=== PATIENT | male | born 1935 | race Caucasian/White ===

== ENCOUNTER 2018-05-12 13:17 | Inpatient (IN) | payer MEDICARE, BC ==
[~2018-05-12] VITALS: Ht 177.8 cm; Wt 64.0 kg
--- NOTE | 2018-05-12 14:00 | NUR ---
SENT BY DR. BRAVO FOR DEPRESSION, PSYCH ADMISSION. DENIES SI/HI. VSS. NAD NOTED @ THIS TIME. FAMILY @ BS.
[2018-05-12 14:01] LABS: BASOPHILS % (AUTO) 0.2 % (0.0-2.0); EOSINOPHILS % (AUTO) 2.2 % (0.0-6.0); HEMATOCRIT 38 % (39-51); HEMOGLOBIN 12.2 g/dL (13.5-17.5); LYMPHOCYTES % (AUTO) 14.2 % (20.0-44.0); MEAN CORPUSCULAR HEMOGLOBIN 32 PG (26.0-33.0); MEAN CORPUSCULAR HGB CONC 32 g/dl (31.0-36.0); MEAN CORPUSCULAR VOLUME 98 fL (80-96); MONOCYTES # (AUTO) 0.5 /CMM (0.1-1.30); MONOCYTES % (AUTO) 7.6 % (2.0-12.0); NEUTROPHILS # (AUTO) 5.1 /CMM (1.8-8.9); NEUTROPHILS % (AUTO) 75.8 % (43.0-81.0); PLATELET COUNT (AUTO) 224 /CMM (150-450); RDW COEFFICIENT OF VARIATION 14.1 (11.5-15.0); RED BLOOD CELL COUNT(AUTO) 3.86 MIL/uL (4.5-6.0); WHITE BLOOD COUNT (AUTO) 6.8 K/uL (4.3-11.0)
--- NOTE | 2018-05-12 14:23 | NUR ---
CALLED TARIK PINKJeremiah AND WAS TOLD SHE WOULD BE HERE WITHIN THE HOUR.
--- NOTE | 2018-05-12 14:24 | NUR ---
CALLED NURSING ANIMAL SHELTER SUPERVISOR AND REQUESTED A GPS BED FOR THIS PT.
[2018-05-12 14:25] LABS: CALCIUM, SERUM 9.2 mg/dL (8.5-10.1); CARBON DIOXIDE 32 mmol/L (21-32); CHLORIDE 103 mmol/L (98-107); GLUCOSE 94 mg/dL (74-106); POTASSIUM 4.6 mmol/L (3.5-5.1); SODIUM SERUM 140 mmol/L (136-145); UREA NITROGEN, BLOOD 38 mg/dL (7-18)
[2018-05-12 14:30] LABS: ACETAMINOPHEN 0 ug/ml (10-30); ALANINE AMINOTRANSFERASE 49 U/L (12-78); ALBUMIN 4.1 g/dL (3.4-5.0); ALCOHOL, BLOOD < 3 mg/dL (0-0); ALKALINE PHOSPHATASE 79 U/L (46-116); ASPARTATE AMINOTRANSFERASE 31 U/L (15-37); BILIRUBIN,DIRECT 0.1 mg/dL (0.0-0.2); BILIRUBIN,TOTAL 0.3 mg/dL (0.2-1.0); SALICYLATE 1.6 mg/dL (2.8-20.0); TOTAL PROTEIN, SERUM 7.6 g/dL (6.4-8.2)
[2018-05-12] MEDS ORDERED: LORAZEPAM 0.5 MG TABLET PO ONE (14:30)
[2018-05-12] MEDS ORDERED: LORAZEPAM 1 MG TABLET ONE (14:34)
[2018-05-12] MEDS ORDERED: ASPI-1169 PO (14:53)
[2018-05-12] MEDS ORDERED: ATOR20TA PO (14:53)
[2018-05-12] MEDS ORDERED: QUET100T PO (14:53)
[2018-05-12] MEDS ORDERED: MULT-1168 PO (14:53)
[2018-05-12] MEDS ORDERED: VENL150C2 PO (14:53)
[2018-05-12] MEDS ORDERED: FOLI0.4T2 PO (14:53)
[2018-05-12] MEDS ORDERED: LEVO112T2 PO (14:53)
[2018-05-12] MEDS ORDERED: CHOL50004 PO (14:53)
[2018-05-12] MEDS ORDERED: LORA0.5T PO (14:53)
--- NOTE | 2018-05-12 14:53 | NUR ---
Sosa Bass (Javascript Ui Developer) contact info: .
--- NOTE | 2018-05-12 15:00 | NUR ---
REPORT GIVEN SALINA MERINO FOR JUNE
--- NOTE | 2018-05-12 15:10 | NUR ---
PT IS ASSIGNED TO GPS #: [id number], DX: PSYCHOSIS NOS, AND ADMITTING PSYCHIATRIST IS DR RAMIREZ
--- NOTE | 2018-05-12 17:00 | NUR ---
ADMISSION NOTES PATIENT ADMITTED FROM ER A/O X3 MALE BY DX OF MAJOR DEPRESSION. PATIENT HAS NO ACUTE RESPIRATORY DISTRESS. ON FACE TO FACE ASSESSMENT PATIENT DEPRESS, GRINDING TEETH, REDIRECTABLE. PATIENT SKIN ASSESSMENT DONE, INTACT. PATIENT AMBULATORY, USING WALKER. BELONGING AND CONTRABAND CHECKED. V/S TAKEN BP 134/87, P-70, R-18, O2-97 ROOM AIR, T-98. NEEDS ATTENDED AND ANTICIPATED. DR BRAVO, AND DR GARCIA AWARE OF NEW PATIENT AND MEDICATION. CONTINUED MONITORING.
[2018-05-12 17:10] VITALS: BP 134/87
[2018-05-12] MEDS ORDERED: ACETAMINOPHEN 325 MG TABLET PO PRN (17:30)
[2018-05-12] MEDS ORDERED: MAGNESIUM HYDROXIDE 30 ML UDC PO PRN (17:30)
[2018-05-12] MEDS ORDERED: LORAZEPAM 0.5 MG TABLET PO PRN (17:30)
[2018-05-12] MEDS ORDERED: MAG HYDROX/AL HYDROX/SIMETH 30 ML UDC PO PRN (17:30)
[2018-05-12] MEDS: CHOLECALCIFEROL 1,000 UNIT TABLET (VIT D3) PO SCH (18:40)
--- NOTE | 2018-05-12 18:48 | NUR ---
RN NOTES ADMINISTERED ATIVAN 0.5 MG PO PRN FOR ANXIETY PER PATIENT REQUEST, V/S TAKEN BP 134/87, P-70, CONTINUED MONITORING.
[2018-05-12 20:00] VITALS: BP 132/89
--- NOTE | 2018-05-12 20:00 | NUR ---
RN NOTES RECEIVED PATIENT AWAKE IN DINING ROOM. AO X 3, ABLE TO MAKE NEEDS KNOWN. NO ACUTE DISTRESS NOTED. DENIES ANY PAIN AT THIS TIME. DENIES SI/HI. SAFETY REMINDERS GIVEN. PATIENT PROVIDED WITH LOW BED WITH BILATERAL UPPER SIDE RAILS UP. CALL MASON WITHIN EASY REACH. WILL CONTINUE TO MONITOR.
[2018-05-12 20:07] VITALS: BP 132/89
--- NOTE | 2018-05-13 02:02 | NUR ---
RN NOTES REPORT GIVEN TO LUIS RN FOR CONTINUITY OF CARE. PATIENT WILL BE TRANSFERRED TO ROOM 316-2.
--- NOTE | 2018-05-13 02:14 | NUR ---
TRANSFER ON HOLD FOR NOW PER APPEALS SPECIALIST.
--- NOTE | 2018-05-13 05:09 | NUR ---
RN NOTES PATIENT TRANSFERRED TO ROOM 316-2 UNDER THE CARE OF ULIS RN. ALL BELONGINGS BROUGHT WITH PATIENT.
--- NOTE | 2018-05-13 05:10 | NUR ---
GPS OV RN NOTES RECEIVED FROM MAIN GPS,ROOM 217,VIA WHEELCHAIR THIS 83 Y.O. MALE,ALERT,ORIENTED X3,ON VOLUNTARY STATUS,MAJOR DEPRESSION DIAGNOSIS.NO SKIN ISSUES.AMBULATORY,MED COMPLIANT PE REPORT.NO SALINE LOCK PER PSYCHE PROTOCOL.WILL CONTINUE TO MONITOR BEHAVIOR.
--- NOTE | 2018-05-13 07:28 | NUR ---
RN OPENING NOTES RECEIVED PATIENT IN BED RESTING, A/OX3. NO ACUTE DISTRESS, NO SOB. DENIED PAIN OR DISCOMFORT AT THIS TIME. SITTER AT BEDSIDE FOR SAFETY. NO IV. KEPT PATIENT SAFE AND COMFORTABLE. BED IN LOW/LOCKED POSITION, SIDERAILS UPX2, CALL LIGHT IN REACH. WILL CONTINUE TO MONITOR ACCORDINGLY.
[2018-05-13 08:00] VITALS: BP 122/84
[2018-05-13] MEDS: FOLIC ACID 1 MG TABLET PO SCH (08:58)
[2018-05-13] MEDS: MULTIVIT, IRON, MIN NO. 8, FA 1 TAB PO SCH (08:58)
[2018-05-13] MEDS: ATORVASTATIN 10 MG TABLET PO SCH (08:58)
[2018-05-13] MEDS: ASPIRIN 81 MG TAB.CHEW PO SCH (08:59)
[2018-05-13] MEDS: LEVOTHYROXINE SODIUM 112 MCG TABLET PO SCH (08:59)
[2018-05-13] MEDS ORDERED: MULTIPLE VIT (LYCOPENE/FA/MV,CA,IRON,MIN/LUT)1 TAB PO SCH (09:00)
[2018-05-13] MEDS: CHOLECALCIFEROL 1,000 UNIT TABLET (VIT D3) PO SCH (09:02)
[2018-05-13] MEDS: VENLAFAXINE XR 75 MG CAP.SR.24H PO SCH (15:31)
[2018-05-13 16:00] VITALS: BP 127/80
--- NOTE | 2018-05-13 19:15 | NUR ---
MS/GPS RN OPENING NOTE Patient was seen sitting up in bed AAOx3, breathing on RA with no SOB and no signs of acute distress. Patient appeared well-groomed, calm, and pleasant. Patient denies suicidal ideation. Bed is low/locked position, two side rails up, and call fierro within reach. Patient has no immediate needs/concerns at this time. Will continue to monitor.
--- NOTE | 2018-05-13 19:25 | NUR ---
RN CLOSING NOTES PATIENT IN STABLE CONDITION. ALL NEEDS ATTENDED AND PROVIDED. ALL DUE MEDS GIVEN. KEPT PATIENT COMFORTABLE. SITTER AT BEDSIDE FOR SAFETY. NO SUICIDAL IDEATION NOTED. BED IN LOW/LOCKED POSITION, SIDERAILS UPX2, CALL LIGHT IN REACH. ENDORSED TO NIGHT RN FOR JUNE.
[2018-05-13 20:00] VITALS: BP 134/82
--- NOTE | 2018-05-14 07:15 | NUR ---
GPS RN NOTE - Skin tear Skin tear noted on patient's right elbow during change of shift. This is a new finding. Patient states that he believes his elbow was rubbing against the bed, which is what caused the skin tear. Currently covered with a bandage. Scant bleeding noted. Will continue to monitor.
--- NOTE | 2018-05-14 07:18 | NUR ---
GPS RN CLOSING NOTE Patient is AAOx3, ambulating in room and to the bathroom with steady gait. Patient has been calm and cooperative and denies suicidal thoughts. Patient slept well overnight with no complications. Patient care endorsed to day shift nurse.
--- NOTE | 2018-05-14 07:29 | NUR ---
RN OPENING NOTES RECEIVED PATIENT IN THE TOILET URINATING. A/O X3. VERBALLY RESPONSIVE, DENIES ANY PAIN OR DISCOMFORTS AT THIS TIME. DENIES SI/HI. PT WITH 1:1 SITTER. ON ROOM AIR, BREATHING EVEN AND UNLABORED. SAFETY REMINDERS GIVEN. CALL LIGHT IN REACH. WILL CONTINUE TO MONITOR.
[2018-05-14] MEDS: LEVOTHYROXINE SODIUM 112 MCG TABLET PO SCH (07:34)
[2018-05-14] MEDS: ATORVASTATIN 10 MG TABLET PO SCH (08:56)
[2018-05-14] MEDS: VENLAFAXINE XR 75 MG CAP.SR.24H PO SCH (08:57)
[2018-05-14] MEDS: FOLIC ACID 1 MG TABLET PO SCH (08:57)
[2018-05-14] MEDS: MULTIVIT, IRON, MIN NO. 8, FA 1 TAB PO SCH (08:57)
[2018-05-14] MEDS: CHOLECALCIFEROL 1,000 UNIT TABLET (VIT D3) PO SCH (08:57)
[2018-05-14] MEDS: ASPIRIN 81 MG TAB.CHEW PO SCH (08:57)
--- NOTE | 2018-05-14 11:36 | NUR ---
RN NOTES PATIENT FOR UNIT TRANSFER FROM ROOM 316-1 TO ROOM 211-1. REPORT GIVEN TO NURSE RIOS AND SAID THAT ROOM IS NOT READY AT THIS TIME. WILL TRANSFER PATIENT AFTER LUNCH.
--- NOTE | 2018-05-14 12:42 | NUR ---
INITIAL DISCHARGE PLAN: Patient wishes to be discharged home to [address] [place] [id number] . SW will help form a safe and proper discharge in collaboration with MD.
--- NOTE | 2018-05-14 14:25 | NUR ---
RN NOTES PATIENT MOVED FROM RM 316-2 TO ROOM 211-2 VIA WHEELCHAIR IN NO ACUTE SIGNS OF DISTRESS.
[2018-05-14 16:00] VITALS: BP 128/78
[2018-05-14 20:15] VITALS: BP 150/90
--- NOTE | 2018-05-14 21:14 | NUR ---
RECEIVED PATIENT IN THE ROOM ALERT, ORIENTED X 3 DENIES ANY PAIN OR DISCOMFORT AT THIS TIME, AMBULATORY ON ROOM, AIR, SATURATING 100% AFEBRILE SKIN INTACT PATENT NO DISTRESS NOTED, NO BEHAVIOR PROBLEM NOTED AT THIS TIME, CALM AND COOPERATIVE AT THIS TIME WILL CONTINUES TO MONITOR THE PATIENT EVERY 15 MINS AND MAKE ROUND FOR SAFETY AND FALL
[2018-05-15 07:36] LABS: BASOPHILS % (AUTO) 0.3 % (0.0-2.0); EOSINOPHILS % (AUTO) 1.3 % (0.0-6.0); HEMATOCRIT 43 % (39-51); HEMOGLOBIN 13.6 g/dL (13.5-17.5); LYMPHOCYTES # (AUTO) 1.2 /CMM (0.8-4.8); LYMPHOCYTES % (AUTO) 11.4 % (20.0-44.0); MEAN CORPUSCULAR HEMOGLOBIN 31 PG (26.0-33.0); MEAN CORPUSCULAR HGB CONC 31 g/dl (31.0-36.0); MEAN CORPUSCULAR VOLUME 99 fL (80-96); MONOCYTES # (AUTO) 0.6 /CMM (0.1-1.30); NEUTROPHILS # (AUTO) 8.3 /CMM (1.8-8.9); PLATELET COUNT (AUTO) 225 /CMM (150-450); RDW COEFFICIENT OF VARIATION 14.4 (11.5-15.0); RED BLOOD CELL COUNT(AUTO) 4.39 MIL/uL (4.5-6.0); WHITE BLOOD COUNT (AUTO) 10.3 K/uL (4.3-11.0)
[2018-05-15 07:48] LABS: CREATINE KINASE, TOTAL 110 U/L (39-308)
[2018-05-15 07:50] LABS: ALANINE AMINOTRANSFERASE 58 U/L (12-78); ALKALINE PHOSPHATASE 77 U/L (46-116); ASPARTATE AMINOTRANSFERASE 29 U/L (15-37); BILIRUBIN,TOTAL 0.2 mg/dL (0.2-1.0); CALCIUM, SERUM 9.1 mg/dL (8.5-10.1); CARBON DIOXIDE 31 mmol/L (21-32); CHLORIDE 107 mmol/L (98-107); GLUCOSE 105 mg/dL (74-106); MAGNESIUM 2.1 mg/dL (1.8-2.4); PHOSPHORUS 3.8 mg/dL (2.5-4.9); POTASSIUM 4.5 mmol/L (3.5-5.1); SODIUM SERUM 146 mmol/L (136-145); TOTAL PROTEIN, SERUM 7.7 g/dL (6.4-8.2); UREA NITROGEN, BLOOD 37 mg/dL (7-18)
[2018-05-15 08:00] VITALS: BP 146/90
[2018-05-15] MEDS: ASPIRIN 81 MG TAB.CHEW PO SCH (08:55)
[2018-05-15] MEDS: MULTIVIT, IRON, MIN NO. 8, FA 1 TAB PO SCH (08:55)
[2018-05-15] MEDS: VENLAFAXINE XR 75 MG CAP.SR.24H PO SCH (08:55)
[2018-05-15] MEDS: CHOLECALCIFEROL 1,000 UNIT TABLET (VIT D3) PO SCH (08:55)
[2018-05-15] MEDS: LEVOTHYROXINE SODIUM 112 MCG TABLET PO SCH (08:55)
[2018-05-15] MEDS: ATORVASTATIN 10 MG TABLET PO SCH (08:55)
[2018-05-15] MEDS: FOLIC ACID 1 MG TABLET PO SCH (08:55)
--- NOTE | 2018-05-15 10:13 | NUR ---
WOUND CARE CONSULT: PT PRESENTS WITH SKIN TEAR TO RT ELBOW. RECOMMENDATIONS MADE FOR WOUND CARE AND SKIN PROTECTION. DISCUSSED WITH NURSING STAFF. PT IS AMBULATORY AND CONTINENT. WILL SEE PRN. CHINO IN AGREEMENT WITH PLAN OF CARE. Addendum: 05/15/18 at 1014 by BARBY MAJANO WNDNU Amended: Links added.
[2018-05-15 16:00] VITALS: BP 137/83
[2018-05-15 19:28] VITALS: BP 132/73
--- NOTE | 2018-05-15 19:30 | NUR ---
GPS RN NOTE, RECEIVED PATIENT AWAKE AND IN BED WITH ONE FAMILY MEMBER AT BEDSIDE. PATIENT HAS NO S/S OR COMPLAINTS OF PAIN AT THIS TIME. PATIENT IS DISPLAYING NO S/S OF APPARENT DISTRESS AT THIS TIME. PATIENT BREATHING IS UNLABORED WITH EQUAL RISE AND FALL OF THE CHEST. PATIENT IS ALERT AND ORIENTED X 3 ON ROOM AIR WITH A SPO2 96%. PATIENT IS MED COMPLIANT, DISORGANIZED, CALM, AND COOPERATIVE. PATIENT DENIES SUICIDAL AND HOMICIDAL IDEATIONS AT THIS TIME. PATIENT ASSISTED WITH TURING AND REPOSITIONING Q2HRS AND PRN FOR COMFORT AND CIRCULATION. PATIENT HAS NO NEEDS AT THIS TIME. PATIENT EDUCATED ON THE USE OF THE CALL MASON. PATIENT BEDSIDE RAILS ARE UP X 2 FOR SAFETY. PATIENT BED IS LOCKED AND LOW WILL CONTINUE TO MONITOR AND MAINTAIN SAFETY Q15MIN WITH THE HELP OF STAFF.
--- NOTE | 2018-05-15 19:40 | NUR ---
GPS RN NOTE, PATIENT HAS COMPLAINT OF ITCHING IN BOTH EYES WITH DISCHARGE. PATIENT EYES ARE P.E.R.R.L.A, WITH ERYTHEMA, AND SCANT AMOUNT OF PURULENT DISCHARGE. PAGED DR DIMAS MALAGON AND INFORMED HIM OF MY FINDINGS. DR MALAGON ORDERED CIPROFLOXACIN HCL 0.3% 1 DROP EACH EYE Q4HR WHILE PATIENT IS AWAKE. ALL ORDERS NOTED AND CARRIED OUT WILL CONTINUE TO MONITOR THIS PATIENT.
[2018-05-15] MEDS: CIPROFLOXACIN HCL 0.3% 5 ML BOTTLE EACHEYE SCH (20:29)
[2018-05-15 21:10] LABS: APPEARANCE,URINE SL CLOUDY (CLEAR); BILIRUBIN,URINE NEGATIVE (NEGATIVE); BLOOD, URINE NEGATIVE Ery/uL (NEGATIVE); COLOR,URINE YELLOW (YELLOW); KETONES,URINE NEGATIVE (NEGATIVE); LEUKOCYTE ESTERASE ,URINE NEGATIVE (NEGATIVE); NITRITE, URINE NEGATIVE (NEGATIVE); PH,URINE 6.5 (5.0-8.0); PROTEIN,URINE NEGATIVE (NEGATIVE); UGLUCOSE NEGATIVE (NEGATIVE); UROBILINOGEN,URINE 0.2 EU/dL (0.2)
[2018-05-15 21:14] LABS: URINE SODIUM, RANDOM 41 mmol/l (40-220); URINE TOTAL PROTEIN 17.5 mg/dL (0-11.9)
[2018-05-15 21:16] LABS: CREATININE, URINE < 5.0 MG/DL (30.0-125.0)
[2018-05-15] MEDS: QUETIAPINE FUMARATE 100 MG TABLET PO SCH (21:24)
[2018-05-15 22:18] LABS: EOSINOPHIL,URINE None Seen
[2018-05-16] MEDS: CIPROFLOXACIN HCL 0.3% 5 ML BOTTLE EACHEYE SCH ×6 (01:00→21:27)
--- NOTE | 2018-05-16 01:07 | NUR ---
GPS RN NOTE, PATIENT REFUSED TO HAVE CIPROFLOXACIN HCL 0.3% ADMINISTERED AT THIS TIME. OFFERED AFOREMENTIONED MEDICATION THREE TIMES BUT STILL PATIENT REFUSED STATING, " I'M ASLEEP LEAVE ME ALONE". EDUCATED THE PATIENT ON THE RISKS AND BENEFITS OF TAKING AND REFUSING CIPROFLOXACIN. WILL CONTINUE TO MONITOR THIS PATIENT.
[2018-05-16 07:58] VITALS: BP 152/97
[2018-05-16] MEDS: VENLAFAXINE XR 37.5 MG CAP.SR.24H PO SCH (08:53)
[2018-05-16] MEDS: CHOLECALCIFEROL 1,000 UNIT TABLET (VIT D3) PO SCH (08:54)
[2018-05-16] MEDS: FOLIC ACID 1 MG TABLET PO SCH (08:54)
[2018-05-16] MEDS: ASPIRIN 81 MG TAB.CHEW PO SCH (08:54)
[2018-05-16] MEDS: LEVOTHYROXINE SODIUM 112 MCG TABLET PO SCH (08:54)
[2018-05-16] MEDS: MULTIVIT, IRON, MIN NO. 8, FA 1 TAB PO SCH (08:54)
[2018-05-16] MEDS: ATORVASTATIN 10 MG TABLET PO SCH (08:54)
--- NOTE | 2018-05-16 09:00 | NUR ---
GPS RN AM NOTES RECEIVED PATIENT AWAKE IN THE DINING ROOM.PATIENT HAS NO S/S OR COMPLAINTS OF PAIN. PATIENT IS DISPLAYING NO S/S OF APPARENT DISTRESS.PATIENT BREATHING IS NON LABORED.ON ROOM AIR WITH A SPO2 96%. PATIENT IS MED COMPLIANT, DISORGANIZED, CALM, AND COOPERATIVE. PATIENT DENIES SUICIDAL AND HOMICIDAL IDEATIONS.PATIENT ASSISTED WITH TURNING AND REPOSITIONING Q2HRS WHEN IN BED.PATIENT EDUCATED ON THE USE OF THE CALL MASON.PATIENT BEDSIDE RAILS ARE UP X 2 FOR SAFETY. PATIENT BED IS LOCKED AND IN LOW POSITION.WILL CONTINUE TO MONITOR AND MAINTAIN SAFETY Q15MIN WITH THE HELP OF STAFF.
[2018-05-16 11:16] LABS: *SPE A/G RATIO 1.2 (0.7-1.7); *SPE ALBUMIN 3.8 g/dL (2.9-4.4); *SPE ALPHA-1-GLOBULIN 0.3 g/dL (0.0-0.4); *SPE ALPHA-2-GLOBULIN 0.8 g/dL (0.4-1.0); *SPE BETA GLOBULIN 0.9 g/dL (0.7-1.3); *SPE GLOBULIN, TOTAL 3.1 g/dL (2.2-3.9); *SPE M-SPIKE Not Observed g/dL (Not Observed); *SPEGAMMA GLOBULIN 1.1 g/dL (0.4-1.8)
[2018-05-16 12:15] LABS: PTH, INTACT 36 pg/mL (15-65)
[2018-05-16 16:30] VITALS: BP 123/76
--- NOTE | 2018-05-16 18:08 | NUR ---
PT RESTING IN BED WITH FAMILY MEMBER AT BEDSIDE.ATE 100%DINNER.
[2018-05-16 20:00] VITALS: BP 116/78
[2018-05-16] MEDS: QUETIAPINE FUMARATE 100 MG TABLET PO SCH (21:27)
[2018-05-17] MEDS: CIPROFLOXACIN HCL 0.3% 5 ML BOTTLE EACHEYE SCH ×6 (01:00→21:22)
[2018-05-17 06:47] LABS: BASOPHILS % (AUTO) 0.3 % (0.0-2.0); EOSINOPHILS % (AUTO) 3.2 % (0.0-6.0); HEMATOCRIT 39 % (39-51); HEMOGLOBIN 12.4 g/dL (13.5-17.5); LYMPHOCYTES # (AUTO) 1.6 /CMM (0.8-4.8); MEAN CORPUSCULAR HEMOGLOBIN 31 PG (26.0-33.0); MEAN CORPUSCULAR HGB CONC 32 g/dl (31.0-36.0); MEAN CORPUSCULAR VOLUME 98 fL (80-96); MONOCYTES # (AUTO) 0.6 /CMM (0.1-1.30); MONOCYTES % (AUTO) 7.3 % (2.0-12.0); NEUTROPHILS # (AUTO) 5.8 /CMM (1.8-8.9); NEUTROPHILS % (AUTO) 70.2 % (43.0-81.0); PLATELET COUNT (AUTO) 208 /CMM (150-450); RDW COEFFICIENT OF VARIATION 14.3 (11.5-15.0); RED BLOOD CELL COUNT(AUTO) 3.97 MIL/uL (4.5-6.0); WHITE BLOOD COUNT (AUTO) 8.3 K/uL (4.3-11.0)
[2018-05-17 07:22] LABS: ALANINE AMINOTRANSFERASE 39 U/L (12-78); ALBUMIN 3.5 g/dL (3.4-5.0); ALKALINE PHOSPHATASE 76 U/L (46-116); ASPARTATE AMINOTRANSFERASE 22 U/L (15-37); BILIRUBIN,TOTAL 0.2 mg/dL (0.2-1.0); CALCIUM, SERUM 8.5 mg/dL (8.5-10.1); CARBON DIOXIDE 29 mmol/L (21-32); CHLORIDE 106 mmol/L (98-107); GLUCOSE 96 mg/dL (74-106); MAGNESIUM 2.1 mg/dL (1.8-2.4); PHOSPHORUS 4.6 mg/dL (2.5-4.9); POTASSIUM 3.9 mmol/L (3.5-5.1); SODIUM SERUM 144 mmol/L (136-145); TOTAL PROTEIN, SERUM 6.9 g/dL (6.4-8.2); UREA NITROGEN, BLOOD 45 mg/dL (7-18)
[2018-05-17 08:00] VITALS: BP 125/80
[2018-05-17] MEDS: MULTIVIT, IRON, MIN NO. 8, FA 1 TAB PO SCH (08:15)
[2018-05-17] MEDS: FOLIC ACID 1 MG TABLET PO SCH (08:15)
[2018-05-17] MEDS: ASPIRIN 81 MG TAB.CHEW PO SCH (08:15)
[2018-05-17] MEDS: CHOLECALCIFEROL 1,000 UNIT TABLET (VIT D3) PO SCH (08:16)
[2018-05-17] MEDS: ATORVASTATIN 10 MG TABLET PO SCH (08:16)
[2018-05-17] MEDS: VENLAFAXINE XR 37.5 MG CAP.SR.24H PO SCH (08:16)
[2018-05-17] MEDS: LEVOTHYROXINE SODIUM 112 MCG TABLET PO SCH (08:16)
[2018-05-17 16:00] VITALS: BP 135/94
[2018-05-17 20:00] VITALS: BP 118/84
[2018-05-17] MEDS: QUETIAPINE FUMARATE 100 MG TABLET PO SCH (21:22)
[2018-05-18] MEDS: CIPROFLOXACIN HCL 0.3% 5 ML BOTTLE EACHEYE SCH ×6 (01:00→21:57)
[2018-05-18 08:00] VITALS: BP 131/84
[2018-05-18] MEDS: ATORVASTATIN 10 MG TABLET PO SCH (08:26)
[2018-05-18] MEDS: FOLIC ACID 1 MG TABLET PO SCH (08:26)
[2018-05-18] MEDS: ASPIRIN 81 MG TAB.CHEW PO SCH (08:26)
[2018-05-18] MEDS: CHOLECALCIFEROL 1,000 UNIT TABLET (VIT D3) PO SCH (08:26)
[2018-05-18] MEDS: LEVOTHYROXINE SODIUM 112 MCG TABLET PO SCH (08:26)
[2018-05-18] MEDS: MULTIVIT, IRON, MIN NO. 8, FA 1 TAB PO SCH (08:26)
[2018-05-18] MEDS: MODAFINIL 100 MG TABLET PO SCH (08:31)
[2018-05-18 16:00] VITALS: BP 110/73
[2018-05-18 20:00] VITALS: BP 123/86
[2018-05-18] MEDS: QUETIAPINE FUMARATE 100 MG TABLET PO SCH (21:57)
[2018-05-18] MEDS: ZOLPIDEM TARTRATE 10 MG TABLET PO PRN (21:58)
[2018-05-19] MEDS: CIPROFLOXACIN HCL 0.3% 5 ML BOTTLE EACHEYE SCH ×6 (00:51→21:22)
[2018-05-19 08:00] VITALS: BP 135/76
[2018-05-19] MEDS: FOLIC ACID 1 MG TABLET PO SCH (08:50)
[2018-05-19] MEDS: ASPIRIN 81 MG TAB.CHEW PO SCH (08:50)
[2018-05-19] MEDS: CHOLECALCIFEROL 1,000 UNIT TABLET (VIT D3) PO SCH (08:50)
[2018-05-19] MEDS: MODAFINIL 100 MG TABLET PO SCH (08:50)
[2018-05-19] MEDS: MULTIVIT, IRON, MIN NO. 8, FA 1 TAB PO SCH (08:50)
[2018-05-19] MEDS: ATORVASTATIN 10 MG TABLET PO SCH (08:50)
[2018-05-19] MEDS: LEVOTHYROXINE SODIUM 112 MCG TABLET PO SCH (08:50)
[2018-05-19 16:01] VITALS: BP 101/66
[2018-05-19 19:53] VITALS: BP 117/76
[2018-05-19] MEDS: QUETIAPINE FUMARATE 100 MG TABLET PO SCH (21:22)
[2018-05-20] MEDS: CIPROFLOXACIN HCL 0.3% 5 ML BOTTLE EACHEYE SCH ×6 (01:16→21:08)
[2018-05-20 08:00] VITALS: BP 145/80
[2018-05-20] MEDS: ASPIRIN 81 MG TAB.CHEW PO SCH (08:26)
[2018-05-20] MEDS: CHOLECALCIFEROL 1,000 UNIT TABLET (VIT D3) PO SCH (08:27)
[2018-05-20] MEDS: ATORVASTATIN 10 MG TABLET PO SCH (08:27)
[2018-05-20] MEDS: FOLIC ACID 1 MG TABLET PO SCH (08:27)
[2018-05-20] MEDS: LEVOTHYROXINE SODIUM 112 MCG TABLET PO SCH (08:27)
[2018-05-20] MEDS: MULTIVIT, IRON, MIN NO. 8, FA 1 TAB PO SCH (08:27)
[2018-05-20] MEDS: MODAFINIL 100 MG TABLET PO SCH (08:49)
[2018-05-20 16:00] VITALS: BP 137/94
[2018-05-20 20:06] VITALS: BP 128/78
[2018-05-20] MEDS: QUETIAPINE FUMARATE 100 MG TABLET PO SCH (21:06)
[2018-05-20] MEDS: ZOLPIDEM TARTRATE 10 MG TABLET PO PRN (22:27)
[2018-05-21] MEDS: CIPROFLOXACIN HCL 0.3% 5 ML BOTTLE EACHEYE SCH ×6 (00:13→21:08)
[2018-05-21 06:59] LABS: BASOPHILS % (AUTO) 0.2 % (0.0-2.0); EOSINOPHILS % (AUTO) 3.2 % (0.0-6.0); HEMATOCRIT 42 % (39-51); HEMOGLOBIN 12.9 g/dL (13.5-17.5); LYMPHOCYTES # (AUTO) 1.5 /CMM (0.8-4.8); MEAN CORPUSCULAR HEMOGLOBIN 31 PG (26.0-33.0); MEAN CORPUSCULAR HGB CONC 31 g/dl (31.0-36.0); MEAN CORPUSCULAR VOLUME 99 fL (80-96); MONOCYTES # (AUTO) 0.7 /CMM (0.1-1.30); MONOCYTES % (AUTO) 7.2 % (2.0-12.0); NEUTROPHILS # (AUTO) 6.9 /CMM (1.8-8.9); NEUTROPHILS % (AUTO) 73.4 % (43.0-81.0); PLATELET COUNT (AUTO) 226 /CMM (150-450); RDW COEFFICIENT OF VARIATION 14.3 (11.5-15.0); RED BLOOD CELL COUNT(AUTO) 4.19 MIL/uL (4.5-6.0); WHITE BLOOD COUNT (AUTO) 9.4 K/uL (4.3-11.0)
--- NOTE | 2018-05-21 07:00 | NUR ---
GPS OVERFLOW RN AM NOTES RECEIVED PATIENT TRANSFERRED FROM GPS AN OVERFLOW.PT ALERT AND AWAKE IN HIS ROOM.PATIENT HAS NO S/S OR COMPLAINTS OF PAIN. PATIENT IS DISPLAYING NO S/S OF APPARENT DISTRESS.PATIENT BREATHING IS NON LABORED.ON ROOM AIR WITH A SPO2 96%. PATIENT IS MED COMPLIANT, DISORGANIZED, CALM, AND COOPERATIVE. PATIENT DENIES SUICIDAL AND HOMICIDAL IDEATIONS.PATIENT ASSISTED WITH TURNING AND REPOSITIONING Q2HRS WHEN IN BED.WITH 1:1 SITTER AT BEDSIDE.PATIENT EDUCATED ON THE USE OF THE CALL MASON.PATIENT BEDSIDE RAILS ARE UP X 2 FOR SAFETY. PATIENT BED IS LOCKED AND IN LOW POSITION.CONTINUE TO BE ON ATB EYEDROPS FOR BILATERAL CONJUNCTIVITIS.WILL CONTINUE TO MONITOR AND MAINTAIN SAFETY Q15MIN.
--- NOTE | 2018-05-21 07:07 | NUR ---
GPS RN NOTE: PATIENT TRANSFERRED TO ROOM 208, GPS OVERFLOW VIA GERICHAIR, STABLE CONDITION, AWAKE, ALERT AND ORIENTED X 2-3, CALM, COOPERATIVE, REPORT GIVEN TO STEF. ENDORSE
[2018-05-21 07:19] LABS: CALCIUM, SERUM 9.1 mg/dL (8.5-10.1); CARBON DIOXIDE 30 mmol/L (21-32); CHLORIDE 108 mmol/L (98-107); GLUCOSE 101 mg/dL (74-106); MAGNESIUM 2.2 mg/dL (1.8-2.4); POTASSIUM 4.1 mmol/L (3.5-5.1); SODIUM SERUM 148 mmol/L (136-145); UREA NITROGEN, BLOOD 40 mg/dL (7-18)
[2018-05-21] MEDS: MULTIVIT, IRON, MIN NO. 8, FA 1 TAB PO SCH (09:13)
[2018-05-21] MEDS: ATORVASTATIN 10 MG TABLET PO SCH (09:13)
[2018-05-21] MEDS: CHOLECALCIFEROL 1,000 UNIT TABLET (VIT D3) PO SCH (09:13)
[2018-05-21] MEDS: ASPIRIN 81 MG TAB.CHEW PO SCH (09:13)
[2018-05-21] MEDS: MODAFINIL 100 MG TABLET PO SCH (09:14)
[2018-05-21] MEDS: FOLIC ACID 1 MG TABLET PO SCH (09:15)
[2018-05-21] MEDS: LEVOTHYROXINE SODIUM 112 MCG TABLET PO SCH (09:23)
[2018-05-21] MEDS ORDERED: LORAZEPAM 0.5 MG TABLET PO ONE (17:00)
--- NOTE | 2018-05-21 18:54 | NUR ---
PT AMBULATING ALONG THE HALLWAY WITH PT'S DAUGHTER WITHIN JOHNNIE PLASCENCIA AND RN'S WATCH.PT TOLERATED WELL.
[2018-05-21] MEDS: ZOLPIDEM TARTRATE 10 MG TABLET PO PRN (21:08)
[2018-05-21] MEDS: QUETIAPINE FUMARATE 100 MG TABLET PO SCH (21:09)
[2018-05-22] MEDS: CIPROFLOXACIN HCL 0.3% 5 ML BOTTLE EACHEYE SCH ×6 (01:00→21:18)
--- NOTE | 2018-05-22 04:56 | NUR ---
RN NOTES No significant change in condition. Patient sleeping comfortably. Patient is calm and relaxed during shift. No c/o pain or discomfort. Due meds given as ordered. Goo eye care provided. All nursing needs attended. Will continue to monitor.
[2018-05-22 08:00] VITALS: BP 105/71
--- NOTE | 2018-05-22 08:00 | NUR ---
GPS OVERFLOW RN AM NOTES RECEIVED PT ALERT AND AWAKE IN HIS ROOM.PATIENT HAS NO S/S OR COMPLAINTS OF PAIN. PATIENT IS DISPLAYING NO S/S OF APPARENT DISTRESS.PATIENT BREATHING IS NON LABORED.ON ROOM AIR WITH A SPO2 96%. PATIENT IS MED COMPLIANT, DISORGANIZED, CALM, AND COOPERATIVE. PATIENT DENIES SUICIDAL AND HOMICIDAL IDEATIONS.PATIENT ASSISTED WITH TURNING AND REPOSITIONING Q2HRS WHEN IN BED.WITH 1:1 SITTER AT BEDSIDE.PATIENT EDUCATED ON THE USE OF THE CALL MASON.PATIENT BEDSIDE RAILS ARE UP X 2 FOR SAFETY. PT IS TO BE DISCHARGED HOME TODAY.AWAITING PATIENT BED IS LOCKED AND IN LOW POSITION.CONTINUE TO BE ON ATB EYEDROPS FOR BILATERAL CONJUNCTIVITIS.EYECARE RENDERED.INSTRUCTED NOT TO TOUCH HIS EYES AND ABOUT GOOD HANDWASHING.WILL CONTINUE TO MONITOR AND MAINTAIN SAFETY Q15MIN.
[2018-05-22] MEDS: CHOLECALCIFEROL 1,000 UNIT TABLET (VIT D3) PO SCH (08:24)
[2018-05-22] MEDS: ASPIRIN 81 MG TAB.CHEW PO SCH (08:24)
[2018-05-22] MEDS: MULTIVIT, IRON, MIN NO. 8, FA 1 TAB PO SCH (08:24)
[2018-05-22] MEDS: ATORVASTATIN 10 MG TABLET PO SCH (08:24)
[2018-05-22] MEDS: LEVOTHYROXINE SODIUM 112 MCG TABLET PO SCH (08:25)
[2018-05-22] MEDS: FOLIC ACID 1 MG TABLET PO SCH (08:25)
--- NOTE | 2018-05-22 15:27 | NUR ---
PT AMBULATING IN THE HALLWAY,RESTLESSLY AWAITING FOR DR BRAVO'S DISCHARGE AND RX ORDER.DENIES SI/HI AND ANY DISTRESS OR DISCOMFORT.WITH 1:1 SITTER AT BEDSIDE.ENDORSED TO WILBER MOONEY'S CARE.
--- NOTE | 2018-05-22 15:47 | NUR ---
DISCHARGE NOTE:Pt will be discharging at 7:00 pm home via private vehicle by Pts daughter Laura [phone] [address]. Pts mood is happy with congruent affect. Pt denied suicidal/homicidal ideations and denied visual/auditory hallucinations. Pt will schedule a follow up appointment with Psychiatrist: Dr. Bassem Linares [address] [place], [place] [id number] [phone] and Cold Roll Packer Sheet Iron: Dr. Homar Valdivia [phone]. The multidisciplinary exitcare form was done, printed, signed, and given to the patient. Addendum: 05/23/18 at 0917 by LATOYA MITCHELL Pt did not discharge yesterday 05/22/18 due to no Rx for discharge.
[2018-05-22 16:01] VITALS: BP 127/84
--- NOTE | 2018-05-22 19:45 | NUR ---
RN NOTES SPOKE TO DR BRAVO, ASKED HIM IF HIS STILL COMING TO SEE THE PT BEFORE DISCHARGE. PER DR BRAVO PT IS OK TO BE DISCHARGE BUT DAUGHTER OF PT AT BEDSIDE WANTS DR BRAVO TO SEE THE PT AND CAN GIVE PRESCRIPTION FOR PT MEDICATIONS. DR BRAVO WILL COME AND SEE THE PT BEFORE DISCHARGE TOMORROW.
[2018-05-22] MEDS: QUETIAPINE FUMARATE 100 MG TABLET PO SCH (21:15)
--- NOTE | 2018-05-23 01:00 | NUR ---
RN NOTES CILOXAN EYE DROPS NOT GIVEN, PT IS SLEEPING.
[2018-05-23] MEDS: CIPROFLOXACIN HCL 0.3% 5 ML BOTTLE EACHEYE SCH ×4 (04:49→13:07)
--- NOTE | 2018-05-23 06:36 | NUR ---
RN NOTES PT SLEPT WELL OVERNIGHT, VITAL SIGNS STABLE, NO SIGNIFICANT CHANGE IN CONDITION NOTED. PT CALM AND COOPERATIVE WITH CARE. SAFETY MEASURES AND FALL PRECAUTION OBSERVED, SITTER AT BEDSIDE. ALL NEEDS ATTENDED. AWAITING FOR DR BRAVO BEFORE DISCHARGE. WILL CONTINUE TO MONITOR PT.
[2018-05-23 08:01] VITALS: BP 137/76
[2018-05-23 08:05] VITALS: BP 137/76
[2018-05-23] MEDS: ASPIRIN 81 MG TAB.CHEW PO SCH (09:27)
[2018-05-23] MEDS: CHOLECALCIFEROL 1,000 UNIT TABLET (VIT D3) PO SCH (09:27)
[2018-05-23] MEDS: ATORVASTATIN 10 MG TABLET PO SCH (09:27)
[2018-05-23] MEDS: MULTIVIT, IRON, MIN NO. 8, FA 1 TAB PO SCH (09:27)
[2018-05-23] MEDS: FOLIC ACID 1 MG TABLET PO SCH (09:28)
[2018-05-23] MEDS: LEVOTHYROXINE SODIUM 112 MCG TABLET PO SCH (09:28)
--- NOTE | 2018-05-23 11:00 | NUR ---
DISCHARGE NOTE:Pt will be discharging at 12:00pm home via private vehicle by Pts daughter Laura [phone] [address]. Pts mood is happy with congruent affect. Pt denied suicidal/homicidal ideations and denied visual/auditory hallucinations. Pt will schedule a follow up appointment with Psychiatrist: Dr. Bassem Linares [address] [place] [address] [phone] and Top Steep Tender: Dr. Homar Valdivia [phone]. The multidisciplinary exitcare form was done, printed, signed, and given to the patient.
--- NOTE | 2018-05-23 13:07 | NUR ---
DISCHARGE NOTES PATIENT DISCHARGE AT THIS TIME GOING HOME/ PATIENT A/O X3, MED COMPLAINT, V/ S STABLE, NO COMPLAINING OF PAIN, MEDICALLY STABLE.PATIENT REFUSED SI/HI/AVH AT THIS TIME OF DISCHARGE. MED RECONCILIATION AND DISCHARGE ORDER REVIEWED AND EXPLAINED TO THE PATIENT AND DAUGHTER. DAUGHTER VERBALIZED UNDERSTANDING. BELONGING RETURNED BACK TO THE PATIENT. PATIENT WILL FOLLOW PSYCHIATRIST DR BRAVO, AND RICE DRYER MECHANIC RICHARD Tay . PATIENT ESCORTED TO THE LOBBY FOR SAFETY. PATIENT INSTRUCTOR PAINTING BY DAUGHTER NAME MEDINA PHONE #[phone].
== END 2018-05-23 13:10 | disposition home or self-care (01) | DRG 885 ==
LOC: ER 13:19 → GPS 15:20 → GPSOV 05-13 05:13 → GPS 05-14 14:14 → GPSOV2 05-21 07:09
PROVIDERS: ADMIT Psychiatry & Neurology Psychiatry; ATTEND Internal Medicine
DX: F33.2 Major depressive disorder, recurrent severe without psychotic features (principal); E43 Unspecified severe protein-calorie malnutrition; N17.0 Acute kidney failure with tubular necrosis; N18.9 Chronic kidney disease, unspecified; E03.9 Hypothyroidism, unspecified; E78.5 Hyperlipidemia, unspecified; F41.9 Anxiety disorder, unspecified; G40.909 Epilepsy, unspecified, not intractable, without status epilepticus; Z95.0 Presence of cardiac pacemaker; Z68.20 Body mass index [BMI] 20.0-20.9, adult; M62.50 Muscle wasting and atrophy, not elsewhere classified, unspecified site; H10.9 Unspecified conjunctivitis
CPT/HCPCS: 36415; 80048-TC; 80053-TC; 80076-TC; 81000-TC; 82550-TC; 82570-TC; 83735-TC; 83970; 84100-TC; 84155; 84155-TC; 84165; 84300-TC; 85025-TC; 87081-TC; A4606; A6403; G0480; Z7610